=== PATIENT | female | born 1950 | race Hispanic/Latino ===

== ENCOUNTER 2017-09-17 12:50 | Day surgery (SDC) | payer MEDICARE, OTHER ==
[2017-09-15 13:42] VITALS: BMI 24.6
[2017-09-17 13:11] LABS: EOS # 0.1 (0.0-0.7); EOS % 1.5 % (1.5-5.0); GRAN # 3.84 (1.4-6.5); GRAN % 72.6 % (50.0-68.0); HEMOGLOBIN 11.6 g/dL (12.0-16.0); LYMPH # 1.1 (1.2-3.4); LYMPH % 20.4 % (22.0-35.0); MEAN CELL VOLUME 90.4 fl (80.0-105.0); MEAN CORPUSCULAR HGB CONC 34.3 g/dl (31.0-37.0); MEAN PLATELET VOLUME 10.1 fl (7.0-11.0); MONO # 0.3 (0.1-0.6); MONO % 5.5 % (1.0-6.0); RBC 3.74 10^6/uL (3.5-6.1); RED CELL DISTRIBUTION WIDTH 13.8 % (11.5-14.5); WHITE BLOOD COUNT 5.3 10^3/ul (4.5-11.0)
[2017-09-17 13:17] VITALS: O2SAT 97
[2017-09-17 13:24] LABS: INR 1.04 (0.93-1.08); PARTIAL THROMBOPLASTIN TIME 30.6 Seconds (25.1-36.5); PROTHROMBIN TIME 11.9 SECONDS (9.4-12.5)
[2017-09-17 13:31] LABS: CALCIUM 9.7 mg/dL (8.4-10.5)
[2017-09-17] MEDS ORDERED: Iodixanol 320 MG/ML 100 ML BOTTLE IV ONE (16:18)
[2017-09-17] MEDS ORDERED: Lidocaine 2% Inj (20ml) ONE (16:18)
[2017-09-17] MEDS ORDERED: Iodixanol 320 MG/ML 200 ML BOTTLE IV ONE (16:18)
[2017-09-17] MEDS ORDERED: Midazolam 2 MG/2 ML VIAL ONE ×3 (16:19→17:34)
[2017-09-17] MEDS ORDERED: Oxycodone/Acetaminophen 5/325 mg Tab PO PRN (17:55)
[2017-09-17] MEDS ORDERED: Sodium Chloride 0.45% 1,000 ML IV SCH (18:00)
[2017-09-17 19:50] VITALS: TEMP 97.7
[2017-09-17 20:13] VITALS: BP 151/65; PULSE 74; RESP 18
--- NOTE | 2017-09-18 16:57 | VASCULAR ---
PROCEDURE: 1. Abdominal aortogram and bilateral lower extremity runoff with left selective views 2. Left popliteal artery jet stream atherectomy and drug-eluting balloon angioplasty HISTORY: Severe peripheral vascular disease. Diabetes. Ex-smoker. Ischemic ulceration left great toe. PHYSICIAN(S): Albert Tyler M.D. TECHNIQUE: The relative risks and indications of the procedure were explained to the patient and consent obtained. The patient was hydrated prior to the procedure and the appropriate labs drawn. The patient was placed supine on the arteriogram table and the right groin prepped and draped in the usual sterile fashion. Conscious sedation and monitoring were provided throughout the procedure by a nurse. Via a right common femoral artery approach, a 5 Maltese sheath was placed in the right groin. Through the sheath and over a guidewire, a 5 Maltese flush catheter was placed in the abdominal aorta at the level of the renal arteries and a PA DSA abdominal aortogram performed. The catheter was pulled down to the aortic bifurcation and bilateral oblique DSA pelvic arteriograms performed. Overlapping bilateral lower extremity DSA arteriograms were obtained from the inguinal ligaments to the feet. A 0.035 angled Glidewire was advanced over the bifurcation and placed in the distal left SFA. A 7 Maltese 65 cm destination sheath was placed in the mid left SFA. Heparin 5000 units IV and nitroglycerin in 250 mcg aliquots were given. The complete occlusion of the left popliteal artery was crossed rather easily with an angled glidewire and 5 Maltese catheter. Exchange was made for a 0.014 support guidewire in the left peroneal artery.. Jet stream atherectomy was performed with 2.4/3 0.4 mm catheter. Three passes were performed. The left popliteal artery was then dilated with 5 mm x 120 mm drug-eluting balloon. An excellent angiographic result was obtained with brisk flow. No stent was required. Completion angiograms were obtained the sheath was removed and hemostasis obtained with a Perclose device. The patient tolerated the procedure well. FINDINGS: There is diffuse calcified irregular atherosclerotic disease present. There appear to be multiple small renal arteries bilaterally with mild to moderate disease. The nephrograms are symmetric. The aortic bifurcation is patent. The common and external iliac arteries are patent without radiographically significant stenosis. The internal iliac arteries are patent bilaterally. Right lower extremity: The right common femoral artery is patent. The right profunda femoral artery is patent. The right superficial femoral artery and right popliteal artery are patent with mild disease. The right trifurcation is patent. There is 3 vessel tibial runoff with diffuse moderate disease. The vessels are small in caliber. Images of the right foot are limited but there appears to be significant pedal occlusive disease. Left lower extremity: The left common femoral artery is patent. There appears to be a 70 percent stenosis of the origin left profunda femoral artery. The left SFA is patent and continuous with mild disease. 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 There is reconstitution of the terminal left popliteal artery. There is 2 vessel runoff on the left via the anterior tibial artery and peroneal artery. There is severe left pedal occlusive disease. There is a 4 cm occlusion of the left dorsalis pedis artery. The left plantar arch is occluded. Collaterals from the peroneal artery are present. IMPRESSION: 1.Successful left popliteal artery jet stream atherectomy and drug-eluting balloon angioplasty. 2. Severe bilateral pedal occlusive disease. 3. 2 vessel tibial runoff bilaterally. 4. 70 percent focal stenosis of the left profunda femoral artery origin.
== END 2017-09-17 22:21 | disposition home or self-care (01) ==
LOC: SDSVAS 12:50 → 2RSO 18:47 → SDSVAS 22:21
PROVIDERS: ATTEND Radiology Vascular & Interventional Radiology
DX: E11.51 Type 2 diabetes mellitus with diabetic peripheral angiopathy without gangrene (principal); E11.621 Type 2 diabetes mellitus with foot ulcer; L97.529 Non-pressure chronic ulcer of other part of left foot with unspecified severity; Z87.891 Personal history of nicotine dependence
CPT/HCPCS: 36415; 37225; 75625; 75716; 80048; 82948; 85025; 85610; 85730; 99152; 99153; C1725 ×2; C1760; C1769 ×3; C1884; C1887 ×2; C1894; J1644 ×2; J2250; J2405; J3010; J7030; Q9966; Q9967